=== PATIENT | male | born 1965 | race Caucasian/White ===

== ENCOUNTER → 2020-03-18 | Outpatient (CLI) | payer OTHER | LOC: M LABSMTC 12:59 | PROVIDERS: ATTEND Anesthesiology | DX: Z03.818 Encounter for observation for suspected exposure to other biological agents ruled out (principal); Z11.59 Encounter for screening for other viral diseases | CPT/HCPCS: C9803; U0003 ==

== ENCOUNTER 2020-03-21 10:48 | Day surgery (SDC) | payer OTHER ==
[~2020-03-21] VITALS: Ht 175.3 cm; Wt 112.7 kg
[~2020-03-21 10:48] MED LIST: NS 1,000 ML IV ONE
[2020-03-21] MEDS ORDERED: LIDOCAINE 2% 100MG/5ML SDV (FOR ANES.) As Ordered ONE (13:03)
[2020-03-21] MEDS ORDERED: propofoL 200 MG/20 ML VIAL As Ordered ONE ×2 (13:03→13:04)
--- NOTE | 2020-03-21 13:15 | ROOR ---
Patient Name: Chuck Lino Procedure Date: 03/21/2020 12:48 PM Date of : 1965 Age: 54 Room: [facility] Gender: Male Note Status: Finalized Procedure: Colonoscopy Indications: High risk colon cancer surveillance: Personal history of colonic polyps, Last colonoscopy: July 2016 Providers: Chuck CHAKRABORTY MD Referring MD: Molina Muñoz MD Requesting Provider: Medicines: Monitored Anesthesia Care Complications: No immediate complications. Procedure: Pre-Anesthesia Assessment: - The heart rate, respiratory rate, oxygen saturations, blood pressure, adequacy of pulmonary ventilation, and response to care were monitored throughout the procedure. The Colonoscope was introduced through the anus and advanced to the terminal ileum, with identification of the appendiceal orifice and IC valve. The colonoscopy was performed without difficulty. The patient tolerated the procedure well. The quality of the bowel preparation was good. Findings: The perianal and digital rectal examinations were normal. Retroflexion in the right colon was performed. The entire examined colon appeared normal on direct and retroflexion views. Non-bleeding hemorrhoids were found during retroflexion. The hemorrhoids were medium-sized. Impression: - The entire colon is normal on direct and retroflexion views. - Non-bleeding hemorrhoids. - No specimens collected. Recommendation: - Repeat colonoscopy in 5 years for surveillance. Chuck Chakraborty MD Chuck CHAKRABORTY MD 03/21/2020 1:15:05 PM Electronically signed by Chuck CHAKRABORTY MD Number of Addenda: 0 Note Initiated On: 03/21/2020 12:48 PM Estimated Blood Loss: Estimated blood loss: none.
[2020-03-21 13:53] VITALS: BP 164/85
== END 2020-03-21 13:55 | disposition home or self-care (01) ==
LOC: M OPP 10:48
PROVIDERS: ATTEND Internal Medicine Gastroenterology
DX: Z12.11 Encounter for screening for malignant neoplasm of colon (principal); Z86.010 Personal history of colon polyps; Z80.0 Family history of malignant neoplasm of digestive organs; K64.9 Unspecified hemorrhoids

== ENCOUNTER → 2020-04-11 | Outpatient (REF) | payer OTHER ==
[2020-04-11 13:17] LABS: ALBUMIN 4.2 GM/DL (3.2-5.2); ALT/SGPT 43 U/L (12-78); BILIRUBIN,TOTAL 0.6 MG/DL (0.2-1.0); BLOOD UREA NITROGEN 16 MG/DL (7-18); CALCIUM LEVEL 9.2 MG/DL (8.5-10.1); CARBON DIOXIDE LEVEL 26 MEQ/L (21-32); CHLORIDE LEVEL 105 MEQ/L (98-107); CHOLESTEROL LEVEL 204 MG/DL (<200); CREATININE FOR GFR 1.11 MG/DL (0.70-1.30); GLOMERULAR FILTRATION RATE > 60.0 (>56); GLUCOSE, FASTING 99 MG/DL (70-100); HDL CHOLESTEROL 31 MG/DL (>40); LDL CHOLESTEROL 140 MG/DL (<100); NON-HDL-C 173 MG/DL; POTASSIUM SERUM 4.5 MEQ/L (3.5-5.1); SODIUM LEVEL 135 MEQ/L (136-145); TOTAL PROTEIN 7.7 GM/DL (6.4-8.2); TRIGLYCERIDES LEVEL 164 MG/DL (<150)
== END ==
LOC: M SFHCADAM 08:55
PROVIDERS: ATTEND Family Medicine
DX: E78.5 Hyperlipidemia, unspecified (principal); Z12.5 Encounter for screening for malignant neoplasm of prostate

== ENCOUNTER → 2020-07-31 | Outpatient (CLI) | payer SELFPAY | LOC: M LABSMTC 13:50 | PROVIDERS: ATTEND Pediatrics | DX: Z20.828 Contact with and (suspected) exposure to other viral communicable diseases (principal) ==

== ENCOUNTER → 2020-08-20 | Outpatient (REF) | payer OTHER ==
[2020-08-20 13:26] LABS: CHOLESTEROL RISK RATIO 5.421 (<5)
== END ==
LOC: M SFHCADAM 08:58
PROVIDERS: ATTEND Family Medicine
DX: E78.5 Hyperlipidemia, unspecified (principal)

== ENCOUNTER → 2020-08-28 | Outpatient (CLI) | payer SELFPAY | LOC: M LABSMTC 14:35 | PROVIDERS: ATTEND Pediatrics | DX: Z20.828 Contact with and (suspected) exposure to other viral communicable diseases (principal) ==

== ENCOUNTER 2022-02-18 18:21 | Emergency (ER) | payer OTHER, SELFPAY ==
[~2022-02-18] VITALS: Ht 175.3 cm; Wt 113.2 kg
[2022-02-18] MEDS ORDERED: ASPI325T57 PO (18:43)
[2022-02-19] MEDS ORDERED: amLODIPine 5 MG TAB PO ONE (00:55)
[2022-02-19 00:59] LABS: BLOOD UREA NITROGEN 18 MG/DL (7-18); CALCIUM LEVEL 9.4 MG/DL (8.5-10.1); CARBON DIOXIDE LEVEL 29 MEQ/L (21-32); CHLORIDE LEVEL 106 MEQ/L (98-107); CREATININE FOR GFR 1.11 MG/DL (0.70-1.30); GLOMERULAR FILTRATION RATE > 60.0 (>56); GLUCOSE, FASTING 105 MG/DL (70-100); POTASSIUM SERUM 4.4 MEQ/L (3.5-5.1); SODIUM LEVEL 138 MEQ/L (136-145)
[2022-02-19 01:04] LABS: BASO # 0.1 10^3/uL (0.0-0.2); BASO % 0.6 % (0.0-1.0); EOS # 0.3 10^3/uL (0.0-0.5); HEMATOCRIT 45.2 % (42.0-52.0); HEMOGLOBIN 15.8 g/dl (13.5-17.5); LYMPH # 3.4 10^3/uL (1.5-5.0); LYMPH % 41.4 % (24.0-44.0); MEAN CORPUSCULAR HEMOGLOBIN 29.2 pg (27.0-33.0); MEAN CORPUSCULAR VOLUME 83.5 fl (80.0-96.0); MONO # 0.8 10^3/uL (0.0-0.8); MONO % 9.6 % (2.0-8.0); NEUTROPHILS # 3.7 10^3/uL (1.5-8.5); NEUTROPHILS % 44.7 % (36.0-66.0); PLATELET COUNT, AUTOMATED 212 10^3/uL (150-450); RED BLOOD COUNT 5.41 10^6/uL (4.30-6.10); WHITE BLOOD COUNT 8.2 10^3/uL (4.0-10.0)
[2022-02-19 01:12] VITALS: BP 171/103
[2022-02-19 02:09] LABS: APPEARANCE, URINE CLEAR (CLEAR); BACTERIA, URINE AUTO NEGATIVE (NEGATIVE); BILIRUBIN, URINE AUTO NEGATIVE (NEGATIVE); BLOOD, URINE BLOOD NEGATIVE (NEGATIVE); COLOR, URINE YELLOW (YELLOW); GLUCOSE, URINE (UA) AUTO NEGATIVE (NEGATIVE); KETONE, URINE AUTO NEGATIVE (NEGATIVE); LEUKOCYTE ESTERASE, URINE AUTO NEGATIVE (NEGATIVE); NITRITE, URINE AUTO NEGATIVE (NEGATIVE); PROTEIN, URINE AUTO NEGATIVE (NEGATIVE); RBC, URINE AUTO 0 /HPF (0-3); SPECIFIC GRAVITY URINE AUTO 1.014 (1.002-1.035); SQUAMOUS EPITHELIAL CELL UR AU 0 /HPF (0-6); UROBILINOGEN, URINE AUTO 0.2 mg/dL (0.0-2.0); WBC, URINE AUTO 1 /HPF (0-3)
[2022-02-19] MEDS ORDERED: NORV5TAB PO (02:32)
[2022-02-19 02:45] VITALS: BP 146/100
== END 2022-02-19 03:00 | disposition home or self-care (01) ==
LOC: M ED 18:21
DX: I10 Essential (primary) hypertension (principal); R00.1 Bradycardia, unspecified; E66.9 Obesity, unspecified

== ENCOUNTER → 2022-03-10 | Outpatient (REF) | payer OTHER ==
[~2022-03-10] MED LIST changes: +ASPI325T57 PO; +NORV5TAB PO; -NS 1,000 ML IV ONE
[2022-03-10 14:16] LABS: HEMOGLOBIN A1c 6.1 %
[2022-03-10 14:36] LABS: MALB URINE SIEMENS 11.8 MG/L; MAU/CREAT RATIO 10.9 MCG/MG (0.0-30.0)
[2022-03-10 14:39] LABS: ALBUMIN 3.9 GM/DL (3.2-5.2); ALT/SGPT 36 U/L (12-78); BILIRUBIN,TOTAL 0.4 MG/DL (0.2-1.0); BLOOD UREA NITROGEN 13 MG/DL (7-18); CALCIUM LEVEL 9.7 MG/DL (8.5-10.1); CARBON DIOXIDE LEVEL 28 MEQ/L (21-32); CHLORIDE LEVEL 107 MEQ/L (98-107); CHOLESTEROL LEVEL 195 MG/DL (<200); CHOLESTEROL RISK RATIO 5.909 (<5); CREATININE FOR GFR 1.01 MG/DL (0.70-1.30); FREE T4 0.68 NG/DL (0.76-1.46); GLOMERULAR FILTRATION RATE > 60.0 (>56); GLUCOSE, FASTING 103 MG/DL (70-100); HDL CHOLESTEROL 33 MG/DL (>40); LDL CHOLESTEROL 126 MG/DL (<100); NON-HDL-C 162 MG/DL; POTASSIUM SERUM 4.5 MEQ/L (3.5-5.1); SODIUM LEVEL 140 MEQ/L (136-145); TOTAL PROTEIN 7.4 GM/DL (6.4-8.2); TRIGLYCERIDES LEVEL 178 MG/DL (<150)
== END ==
LOC: M SFHCADAM 08:37
PROVIDERS: ATTEND Family Medicine
DX: I11.9 Hypertensive heart disease without heart failure (principal); E78.5 Hyperlipidemia, unspecified; Z12.5 Encounter for screening for malignant neoplasm of prostate; Z13.1 Encounter for screening for diabetes mellitus
CPT/HCPCS: 80053; 80061; 82043; 83036; 84439; 84443; G0103

== ENCOUNTER → 2022-08-14 | Outpatient (REF) | payer OTHER ==
[2022-08-14 14:47] LABS: ALBUMIN 4.1 GM/DL (3.2-5.2); ALT/SGPT 33 U/L (12-78); BILIRUBIN,TOTAL 0.5 MG/DL (0.2-1.0); BLOOD UREA NITROGEN 17 MG/DL (7-18); CALCIUM LEVEL 9.4 MG/DL (8.5-10.1); CARBON DIOXIDE LEVEL 20 MEQ/L (21-32); CHLORIDE LEVEL 106 MEQ/L (98-107); CHOLESTEROL LEVEL 193 MG/DL (<200); CHOLESTEROL RISK RATIO 6.433 (<5); CREATININE FOR GFR 1.13 MG/DL (0.70-1.30); FREE T4 0.75 NG/DL (0.76-1.46); GLOMERULAR FILTRATION RATE > 60.0 (>56); GLUCOSE, FASTING 119 MG/DL (70-100); HDL CHOLESTEROL 30 MG/DL (>40); LDL CHOLESTEROL 129 MG/DL (<100); NON-HDL-C 163 MG/DL; POTASSIUM SERUM 4.8 MEQ/L (3.5-5.1); SODIUM LEVEL 136 MEQ/L (136-145); TOTAL PROTEIN 7.7 GM/DL (6.4-8.2); TRIGLYCERIDES LEVEL 171 MG/DL (<150)
[2022-08-14 15:38] LABS: HEMOGLOBIN A1c 5.9 %
== END ==
LOC: M SFHCADAM 07:21
PROVIDERS: ATTEND Family Medicine
DX: I11.9 Hypertensive heart disease without heart failure (principal); E78.5 Hyperlipidemia, unspecified; R73.03 Prediabetes; R79.89 Other specified abnormal findings of blood chemistry

== ENCOUNTER → 2023-03-04 | Outpatient (REF) | payer OTHER ==
[2023-03-04 14:33] LABS: ALBUMIN 4.2 G/DL (3.2-5.2); ALKALINE PHOSPHATASE 72 U/L (46-116); ALT/SGPT 35 U/L (7.0-40); AST/SGOT 22 U/L (<34); BILIRUBIN,TOTAL 0.6 MG/DL (0.3-1.2); BLOOD UREA NITROGEN 18 MG/DL (9-23); CALCIUM LEVEL 9.5 MG/DL (8.5-10.1); CARBON DIOXIDE LEVEL 28 MMOL/L (20-31); CHLORIDE LEVEL 106 MMOL/L (98-107); CHOLESTEROL LEVEL 205 MG/DL (<200); CHOLESTEROL RISK RATIO 6.17 (<5); CREATININE FOR GFR 1.11 MG/DL (0.70-1.30); GLOMERULAR FILTRATION RATE > 60.0 (>56); GLUCOSE, FASTING 111 MG/DL (60-100); HDL CHOLESTEROL 33.2 MG/DL (>40); NON-HDL-C 171.8 MG/DL; POTASSIUM SERUM 4.3 MMOL/L (3.5-5.1); SODIUM LEVEL 140 MMOL/L (136-145); THYROID STIMULATING HORMONE 4.041 uIU/ML (0.55-4.78); TOTAL PROTEIN 7.1 G/DL (5.7-8.2); TRIGLYCERIDES LEVEL 124 MG/DL (<150)
[2023-03-04 14:35] LABS: FREE T4 0.78 NG/DL (0.89-1.76)
== END ==
LOC: M SFHCADAM 07:56
PROVIDERS: ATTEND Family Medicine
DX: R79.89 Other specified abnormal findings of blood chemistry (principal); R73.03 Prediabetes; E78.5 Hyperlipidemia, unspecified

== ENCOUNTER → 2023-09-27 | Outpatient (REF) | payer OTHER ==
[2023-09-27 13:54] LABS: ALBUMIN 4.2 G/DL (3.2-5.2); ALKALINE PHOSPHATASE 72 U/L (46-116); ALT/SGPT 44 U/L (7.0-40); AST/SGOT 21 U/L (<34); BILIRUBIN,TOTAL 0.7 MG/DL (0.3-1.2); BLOOD UREA NITROGEN 16 MG/DL (9-23); CARBON DIOXIDE LEVEL 26 MMOL/L (20-31); CHLORIDE LEVEL 104 MMOL/L (98-107); CHOLESTEROL LEVEL 175 MG/DL (<200); CREATININE FOR GFR 0.92 MG/DL (0.70-1.30); GLOMERULAR FILTRATION RATE > 60.0 (>56); GLUCOSE, FASTING 105 MG/DL (60-100); HDL CHOLESTEROL 35.7 MG/DL (>40); LDL CHOLESTEROL 100.1 MG/DL (<100); NON-HDL-C 139.3 MG/DL; POTASSIUM SERUM 4.5 MMOL/L (3.5-5.1); SODIUM LEVEL 139 MMOL/L (136-145); TOTAL PROTEIN 7.4 G/DL (5.7-8.2); TRIGLYCERIDES LEVEL 196 MG/DL (<150)
== END ==
LOC: M SFHCADAM 09:24
PROVIDERS: ATTEND Family Medicine
DX: E78.5 Hyperlipidemia, unspecified (principal)

== ENCOUNTER → 2024-03-27 | Outpatient (REF) | payer OTHER ==
[2024-03-27 13:26] LABS: ALBUMIN 4.1 G/DL (3.2-5.2); ALKALINE PHOSPHATASE 80 U/L (46-116); ALT/SGPT 35 U/L (7.0-40); AST/SGOT 16 U/L (<34); BILIRUBIN,TOTAL 0.4 MG/DL (0.3-1.2); BLOOD UREA NITROGEN 16 MG/DL (9-23); CARBON DIOXIDE LEVEL 28 MMOL/L (20-31); CHLORIDE LEVEL 106 MMOL/L (98-107); CHOLESTEROL LEVEL 154 MG/DL (<200); CHOLESTEROL RISK RATIO 4.45 (<5); CREATININE FOR GFR 0.97 MG/DL (0.70-1.30); GLOMERULAR FILTRATION RATE > 60.0 (>56); GLUCOSE, FASTING 108 MG/DL (60-100); HDL CHOLESTEROL 34.6 MG/DL (>40); LDL CHOLESTEROL 88.4 MG/DL (<100); NON-HDL-C 119.4 MG/DL; POTASSIUM SERUM 4.6 MMOL/L (3.5-5.1); PSA SCREENING 1.51 NG/ML (< 4.00); SODIUM LEVEL 137 MMOL/L (136-145); TOTAL PROTEIN 6.9 G/DL (5.7-8.2); TRIGLYCERIDES LEVEL 155 MG/DL (<150)
== END ==
LOC: M SFHCADAM 09:03
PROVIDERS: ATTEND Family Medicine
DX: I11.9 Hypertensive heart disease without heart failure (principal); E78.5 Hyperlipidemia, unspecified; Z12.5 Encounter for screening for malignant neoplasm of prostate
CPT/HCPCS: 80053; 80061; G0103

== ENCOUNTER → 2024-09-25 | Outpatient (REF) | payer OTHER ==
[2024-09-25 13:09] LABS: ALBUMIN 4.1 G/DL (3.2-5.2); ALKALINE PHOSPHATASE 87 U/L (40-129); ALT/SGPT 54 U/L (7.0-40); AST/SGOT 28 U/L (<34); BILIRUBIN,TOTAL 0.4 MG/DL (0.3-1.2); BLOOD UREA NITROGEN 19 MG/DL (9-23); CALCIUM LEVEL 9.7 MG/DL (8.3-10.6); CARBON DIOXIDE LEVEL 26 MMOL/L (20-31); CHLORIDE LEVEL 107 MMOL/L (98-107); CHOLESTEROL LEVEL 142 MG/DL (<200); CREATININE FOR GFR 0.97 MG/DL (0.70-1.30); GLOMERULAR FILTRATION RATE > 60.0 (>49); GLUCOSE, FASTING 102 MG/DL (74-106); HDL CHOLESTEROL 27.8 MG/DL (>40); LDL CHOLESTEROL 82.8 MG/DL (<100); NON-HDL-C 114.2 MG/DL; POTASSIUM SERUM 4.5 MMOL/L (3.5-5.1); SODIUM LEVEL 142 MMOL/L (136-145); TOTAL PROTEIN 7.3 G/DL (5.7-8.2); TRIGLYCERIDES LEVEL 157 MG/DL (<150)
[2024-09-25 13:44] LABS: HEMOGLOBIN A1c 5.6 % (4.0-6.0)
== END ==
LOC: M SFHCADAM 08:01
PROVIDERS: ATTEND Family Medicine
DX: I11.9 Hypertensive heart disease without heart failure (principal); E78.5 Hyperlipidemia, unspecified; R73.03 Prediabetes

== ENCOUNTER → 2025-06-04 | Outpatient (REF) | payer OTHER ==
[2025-06-04 13:31] LABS: ALT/SGPT 55.0 U/L (7.0-40); AST/SGOT 33.0 U/L (<34); CALCIUM LEVEL 9.6 MG/DL (8.3-10.6); CARBON DIOXIDE LEVEL 27.0 MMOL/L (20-31); CHLORIDE LEVEL 103.0 MMOL/L (98-107); CHOLESTEROL LEVEL 171.0 MG/DL (<200); CHOLESTEROL RISK RATIO 5.49 (<5); CREATININE FOR GFR 1.11 MG/DL (0.70-1.30); GLOMERULAR FILTRATION RATE 75.6 (>49); LDL CHOLESTEROL 104.5 MG/DL (<100); NON-HDL-C 139.9 MG/DL; POTASSIUM SERUM 4.3 MMOL/L (3.5-5.1); PSA SCREENING 1.78 NG/ML (< 4.00); SODIUM LEVEL 141.0 MMOL/L (136-145); TRIGLYCERIDES LEVEL 177.0 MG/DL (<150)
[2025-06-04 14:17] LABS: ESTIMATED AVERAGE GLUCOSE 126.0 MG/DL (60-110)
== END ==
LOC: M SFHCADAM 08:08
PROVIDERS: ATTEND Family Medicine
DX: I11.9 Hypertensive heart disease without heart failure (principal); R73.03 Prediabetes; E78.5 Hyperlipidemia, unspecified; Z12.5 Encounter for screening for malignant neoplasm of prostate
CPT/HCPCS: 80053; 80061; 83036; G0103

== ENCOUNTER 2025-07-13 09:32 | Day surgery (SDC) | payer OTHER ==
[~2025-07-13] VITALS: Ht 175.3 cm; Wt 109.6 kg
[~2025-07-13 09:32] MED LIST changes: +BEMP180T PO; +VALS40TA9 PO
[2025-07-13] MEDS ORDERED: LIDOCAINE 2% 100 MG/5 ML SDV (FOR ANES.) As Ordered ONE (10:34)
[2025-07-13] MEDS ORDERED: GLYCOPYRROLATE INJ 0.2 MG/ML 2 ML VIAL As Ordered ONE (10:35)
[2025-07-13 11:38] VITALS: TEMP 96.8
[2025-07-13 11:48] VITALS: BP 123/83; O2SAT 97
== END 2025-07-13 11:57 | disposition home or self-care (01) ==
LOC: M OPP 09:32
PROVIDERS: ATTEND Internal Medicine Gastroenterology
DX: Z12.11 Encounter for screening for malignant neoplasm of colon (principal); D12.4 Benign neoplasm of descending colon; D12.2 Benign neoplasm of ascending colon; K57.30 Diverticulosis of large intestine without perforation or abscess without bleeding; K64.8 Other hemorrhoids; Z86.0100 Personal history of colon polyps, unspecified; Z79.899 Other long term (current) drug therapy
CPT/HCPCS: 45385; 88305; J1596